=== PATIENT | male | born 1975 | race African-American/Black ===

== ENCOUNTER 2017-06-29 16:37 | Emergency (ER) | payer SELFPAY ==
[~2017-06-29] VITALS: Ht 157.5 cm; Wt 69.0 kg
[2017-06-29 21:15] VITALS: BP 121/88
== END 2017-06-29 21:30 | disposition home or self-care (01) ==
LOC: ER 16:37
DX: M79.675 Pain in left toe(s) (principal); M79.674 Pain in right toe(s)
CPT/HCPCS: 82962; 99283